=== PATIENT | female | born 1965 | race Caucasian/White ===

== ENCOUNTER 2017-02-16 11:35 | Day surgery (SDC) | payer OTHER ==
[2017-02-12 09:00] LABS: HEMATOCRIT 41.4 % (36.0-48.0)
--- NOTE | ~2017-02-16 | OP ---
Record Of Operation [facility] [address] [place]. [address] NAME: DORA CARLOS : 61 STATUS : [facility]#: [id number] AGE: 51 ADM/REG DATE : 02/16/17 MR#: [id number] REPORT SERV DATE: 02/16/17 DICTATED BY: Alise MUÑOZ DATE: 02/16/17 REPORT STATUS : Draft TRANSCRIBED BY: MODL DATE: 02/16/17 DATE OF PROCEDURE: 02/16/2017 PREOPERATIVE DIAGNOSIS: Recurrent urethral stricture. POSTOPERATIVE DIAGNOSIS: Recurrent urethral stricture. PROCEDURES: Cystoscopy, urethral dilation, examination under anesthesia, Roy catheter placement. SURGEON: Alise Muñoz M.D. ANESTHESIA: General. COMPLICATIONS: None. DRAINS: 24-Sudanese 2-way Roy catheter, silicone coated. BRIEF HISTORY: Ms. Carlos is a 51-year-old white female with a history of a urethral stricture of uncertain etiology. She had a dilation in the remote past and then I dilated her under anesthesia on 04/12/2015. She returned to the office last week with a decreased force of stream and a residual of close to 475 mL. We attempted dilation in the office but she was intolerant of that. We have scheduled the above procedure. The risks of bleeding, infection, anesthesia, injury to adjacent organs, need for postoperative catheterization, and recurrence of stricture were all discussed. There were no unanswered questions. DESCRIPTION OF PROCEDURE: Under excellent general anesthesia, the patient was prepped and draped in standard lithotomy position. The urethra was examined and showed to be grossly normal. Bimanual exam revealed no evidence of vaginal or urethral masses. I used the Soham sounds and dilated her urethra progressively from 12-Sudanese to 26-Sudanese. She was quite tight at 12 and 14-Sudanese but opened up considerably after that. There was a minor amount of bleeding noted. I then inserted the [employer] cystoscope and inspected the bladder. There were no tumors, stones, or foreign bodies, with normal orifices bilaterally. I used both the 30 and 70-degree lenses. The urethra was inspected and showed the results of dilation but no mass was noted. I then inserted a 24-Sudanese 2-way silicone-coated Roy catheter and placed 12 mL of sterile water in the balloon and placed a B and O suppository. There were no rectal masses noted. I plan to discharge Ms. Carlos as an outpatient with the following instructions: DISCHARGE INSTRUCTIONS: 1. Home today. 2. The patient should remove the catheter in approximately five days and call with any problems. 3. Pyridium 200 mg one p.o. t.i.d. p.r.n. bladder pain, #15 with three refills. 4. Hydrocodone 5/325 one to two p.o. q.4 hours p.r.n. pain, #25. Record Of Operation [facility] [address] [place]. [address] NAME: DORA CARLOS : 61 STATUS : [facility] PAT#: [id number] AGE: 51 ADM/REG DATE : 02/16/17 MR#: [id number] REPORT SERV DATE: 02/16/17 DICTATED BY: Alise MUÑOZ DATE: 02/16/17 REPORT STATUS : Draft TRANSCRIBED BY: MADISON DATE: 02/16/17 5. Follow up in my office in two to three weeks to assess her voiding and check another residual urine. We will also consider intermittent self-dilation to try to keep the stricture open which she is more willing to consider now than in the past. KATHARINA/MADISON Alise Muñoz M.D. / [id number] CC: Raj Jackson MD
[~2017-02-16 11:35] MED LIST: CIP5 PO; [UNRECOGNIZED DRUG - OTHER] PO
== END 2017-02-16 18:41 | disposition home or self-care (01) ==
LOC: SDC 11:35
PROC: 0T7D8ZZ Dilation of Urethra, Via Natural or Artificial Opening Endoscopic (ICD-10-PCS; principal; 2017-02-16 12:45)
DX: N35.9 Urethral stricture, unspecified (principal); Z78.0 Asymptomatic menopausal state; Z97.5 Presence of (intrauterine) contraceptive device; Z79.899 Other long term (current) drug therapy
CPT/HCPCS: 85014; 85018; 93005; A9270-GY; J2250; J2405; J3010; Q9967